=== PATIENT | female | born 1940 | race Caucasian/White ===

== ENCOUNTER → 2019-09-11 | Emergency (ER) | payer OTHER ==
[~2019-09-11] VITALS: Ht 149.9 cm; Wt 75.3 kg
[~2019-09-11] MED LIST: MORPHINE SULFATE 4 MG/ML SYR/VIAL IV ONE; ONDANSETRON HCL 4 MG/2 ML VIAL IV ONE; SODIUM CHLORIDE 0.9% 1,000 ML IV ONE; hydrALAZINE HCL 20 MG/ML VL IV ONE
[2019-09-11 20:28] LABS: Alanine Aminotransferase 19 U/L (13-56); Albumin 3.5 g/dL (3.4-5.0); Amylase 29 U/L (25-115); Anion Gap 6 (5-15); Aspartate Aminotransferase 19 U/L (15-37); BUN/Creatinine Ratio 13.7; Blood Urea Nitrogen 13 mg/dL (7-18); Carbon Dioxide 25 mmol/L (21-32); Chloride 105 mmol/L (98-107); GFR African American 73 mL/min; GFR Non-African American 60 mL/min; Glucose 123 mg/dL (74-106); Lipase 103 U/L (73-393); Potassium 3.4 mmol/L (3.5-5.1); Sodium 136 mmol/L (136-145)
[2019-09-11 20:30] LABS: Hemoglobin 15.6 g/dL (12.2-16.2)
[2019-09-11 20:33] LABS: Alkaline Phosphatase 94 U/L (45-117); Bilirubin, Total 0.4 mg/dL (0.2-1.0); Hematocrit 46.1 % (36.0-46.0); Mean Corpuscular Hemoglobin 32.8 pg (28.0-32.0); Mean Corpuscular Hgb Conc. 33.8 g/dL (32.0-36.0); Mean Corpuscular Volume 97.2 fL (80.0-100.0); Platelet Count (auto) 390 10^3/uL (140-450); Red Blood Cells 4.74 10^6/uL (4.0-5.20); Red Cell Distribution Width 14.5 % (11.8-14.3); Total Protein 7.9 g/dL (6.4-8.2); White Blood Cell 14.7 10^3/uL (4.4-10.8)
[2019-09-11 20:36] LABS: Band Neutrophils % (manual) 0; Basophils % (manual) 0 (0.0-2.0); Blast Cells 0; Metamyelocytes % 0; Myelocytes % 0; Promyelocytes % 0; Reactive Lymphocytes 0
[2019-09-11 21:12] LABS: Eosinophils % (manual) 2 (0-7); Lymphocytes % (manual) 12 (10.0-50.0); Monocytes % (manual) 3 (0-12)
[2019-09-11 21:48] LABS: Urine Bacteria FEW /hpf (None Seen); Urine Blood Negative /uL (Negative); Urine Specific Gravity 1.012 (1.001-1.035); Urine WBC 19 /hpf (0 - 5)
[2019-09-12 01:54] VITALS: BP 135/67
== END | disposition short-term general hospital (02) ==
LOC: EDBD 18:54 → ER 18:59
DX: K56.600 Partial intestinal obstruction, unspecified as to cause (principal); K43.5 Parastomal hernia without obstruction or gangrene; R11.2 Nausea with vomiting, unspecified
CPT/HCPCS: 36415; 74176; 80053; 81001; 82150; 83605; 83690; 84484; 85007; 85027; 93005; 96361; 96374; 96375; 96376; 99285; J0360; J2270; J2405; J7030